=== PATIENT | female | born 2000 | race Two or more races ===

== ENCOUNTER 2022-04-26 13:56 | Emergency (ER) | payer OTHER ==
[~2022-04-26] VITALS: Ht 160 cm; Wt 58.1 kg
== END 2022-04-26 19:42 | disposition home or self-care (01) ==
LOC: ER 13:56
DX: D64.9 Anemia, unspecified (principal); N92.4 Excessive bleeding in the premenopausal period; R53.1 Weakness; R51.9 Headache, unspecified; Z20.822 Contact with and (suspected) exposure to COVID-19

== ENCOUNTER → 2024-05-26 | Emergency (ER) | payer OTHER | END | disposition left against medical advice (07) | LOC: ER 18:38 | DX: Z53.21 Procedure and treatment not carried out due to patient leaving prior to being seen by health care provider (principal) ==

== ENCOUNTER 2024-06-15 09:13 | Outpatient (CLI) | payer OTHER | END 2024-06-15 09:19 | disposition home or self-care (01) | LOC: SONOGRAMA 09:13 | PROVIDERS: ATTEND Obstetrics & Gynecology | DX: R10.2 Pelvic and perineal pain (principal) ==

== ENCOUNTER 2024-07-03 14:18 | Emergency (ER) | payer OTHER ==
[~2024-07-03] VITALS: Ht 167.6 cm; Wt 54.4 kg
[2024-07-03] MEDS ORDERED: 0.9 % SODIUM CHLORIDE 1,000 ML IV ONE (14:45)
[2024-07-03] MEDS ORDERED: HALOPERIDOL 0.5 MG TABLET PO ONE (14:45)
[2024-07-03] MEDS ORDERED: FAMOtidine 10 MG/ML (4ML VIAL) IV ONE (14:45)
[2024-07-03] MEDS ORDERED: FAMOTIDINE/PF 20 MG/2 ML VIAL ONE (15:10)
[2024-07-03 15:31] LABS: HEMATOCRIT 35.2 % (36.0-45.00); HEMOGLOBIN 11.6 g/dL (12.0-15.00); MEAN CELL VOLUME 85.1 fL (80.00-100.00); MEAN CORPUSCULAR HEMOGLOBIN 28.1 pg (27.00-32.0); MEAN CORPUSCULAR HGB CONC 33.1 g/dl (32.0-36.0); PLATELET COUNT 250 K/uL (150-450); RED BLOOD COUNT 4.13 M/uL (4.00-6.00); RED CELL DISTRIBUTION WIDTH 14.1 % (11.5-14.5)
[2024-07-03 15:56] LABS: ALBUMIN 4.1 gm/dL (3.4-5.0); BILIRUBIN TOTAL 0.33 mg/dL (0.3-1.2); CALCIUM 9.7 mg/dL (8.5-10.1); CREATININE SERUM 0.55 mg/dL (0.55-1.02); GFR 134.67; GLOBULINA 3.4 G/DL (2.4-3.5); POTASSIUM 3.35 mEq/L (3.5-5.1); TOTAL PROTEIN 7.5 gm/dL (6.4-8.2)
[2024-07-03] MEDS ORDERED: KETOROLAC TROMETHAMINE 30 MG VIAL ONE (16:53)
[2024-07-03] MEDS ORDERED: DIPHENHYDRAMINE HCL 50 MG/ML VIAL 1ML ONE (16:53)
[2024-07-03] MEDS ORDERED: METHYLPREDNISOLONE SOD SUCC 125 MG VIAL ONE (16:54)
== END 2024-07-03 18:02 | disposition home or self-care (01) ==
LOC: ER 14:18
PROVIDERS: General Practice
DX: F41.9 Anxiety disorder, unspecified (principal)

== ENCOUNTER → 2024-10-05 | Emergency (ER) | payer OTHER ==
[~2024-10-05] VITALS: Ht 167.6 cm; Wt 56.7 kg
== END | disposition left against medical advice (07) ==
LOC: ER 10:14
DX: Z53.21 Procedure and treatment not carried out due to patient leaving prior to being seen by health care provider (principal)

== ENCOUNTER 2025-06-23 11:21 | Emergency (ER) | payer OTHER ==
[~2025-06-23] VITALS: Ht 175.3 cm; Wt 63.5 kg
[2025-06-23 13:00] LABS: BASO % 0.4 % (0.1-1.2); EOS # 0.18 (0.04-0.54); EOS % 2.6 % (0.7-7.0); LYMPH # 1.73 (1.18-3.74); LYMPH % 25.1 % (19.3-53.1); MEAN PLATELET VOLUME 9.90 fl (9.4-12.4); MONO # 0.78 (0.24-0.82); MONO % 11.3 % (4.7-12.5); NEUT # 4.17 (1.56-6.13); NEUT % 60.5 % (34.0-71.1); RED CELL DISTRIBUTION WIDTH 13.7 % (11.6-14.4)
[2025-06-23 13:44] LABS: ALT/SGPT 18.0 U/L (12-78); AST/SGOT 17.0 U/L (15-37); BILIRUBIN TOTAL 0.44 mg/dL (0.3-1.2); BUN CREA RATIO 20.0 (7.0-25.0); CREATININE SERUM 0.71 mg/dL (0.55-1.02); GFR 99.51; GLOBULINA 3.6 G/DL (2.4-3.5); GLUCOSE FASTING 79.0 mg/dL (65-100); OSMOLALITY SERUM 288.0 MOSM/KG (275-295)
== END 2025-06-23 14:14 | disposition home or self-care (01) ==
LOC: ER 11:21
PROVIDERS: General Practice
DX: R53.1 Weakness (principal)